=== PATIENT | female | born 1970 | race Caucasian/White ===

== ENCOUNTER 2020-12-13 14:32 | Emergency (ER) | payer OTHER, SELFPAY ==
[2020-12-13 14:32] VITALS: BP 117/85; PULSE 89; RESP 16; TEMP 36.4; O2SAT 95; BMI 25.0
--- NOTE | 2020-12-13 14:45 | CT_ITS ---
STUDY: CT BRAIN WITHOUT CONTRAST REASON FOR EXAM: Female, 50 years old. FALL HITTING BACK OF HEAD WITH POSITIVE LOC RADIATION DOSAGE (If Supplied By Facility): CTDIvol = ( 44.99 ) mGy, DLP = ( 779.24 ) mGycm TECHNIQUE: Transaxial CT imaging of the brain was performed without administration of intravenous contrast material. Individualized dose optimization techniques were used for this CT. COMPARISON: No relevant priors. FINDINGS: There is focal soft tissue swelling towards the vertex in the posterior parietal region measuring 6 x 6 x 1.5 cm. Normal calvarium. Normal size ventricles and extra-axial spaces for the patient''s age. Normal white matter tracts of the cerebral hemispheres. Normal basal ganglia and thalami. Normal brainstem. There is mild cerebellar atrophy. There is no intracranial hemorrhage. There are no findings of an acute ischemic infarction. Normal visualized paranasal sinuses. CT/Brain/Head without Contrast IMPRESSION: Posterior superficial soft tissue edema. No visualized acute fracture or intracranial hemorrhage. Electronically Signed: Noreen Hall MD at 15:14 EST Tel , Service support ,
--- NOTE | 2020-12-13 14:45 | ED.VIS.GEN ---
History of Present Illness Chief Complaint: Fall Informant: Patient Onset: Today Current Severity: Mild Maximum Severity: Mild Narrative: Patient presents after a fall. [place] she states she was suddenly falling backwards and hit her head on the concrete floor. She does not remember feeling lightheaded or dizzy prior to her fall. She denies having palpitations. She did not lose consciousness. She states she does have a goose egg on the back of her head and was told she should be checked out. She is not on anticoagulants. She denies vision changes or nausea. She denies neck pain. She does feel that her jaw is not sitting quite correctly, however is able to open and close her mouth without difficulty. Past Medical History - Allergies and Home Meds Allergies/Adverse Reactions: Allergies No Known Allergies Allergy (Verified 12/13/20 14:32) Primary Care Physician: Ariadna Horan,Out of [Primary Care Provider] - Past Medical History: None Lives: With Family Review of Systems General: Denies: Chills, Fever Eyes: Denies: Visual changes - bilaterally ENT: Reports: - - Jaw pain. Denies: Bilateral ear pain Cardiovascular: Denies: Chest pain Respiratory: Denies: Dyspnea Gastrointestinal: Denies: Abdominal pain, Nausea, Vomiting, Diarrhea Musculoskeletal: Denies: Swelling, Extremity Pain Skin: Reports: Wounds Neurological: Reports: Headache Hematologic: Denies: Easy bruising, Easy bleeding Allergy: Denies: Uticaria Physical Exam Vital Signs/Narrative: Vital Signs Temp Pulse Resp BP Pulse Ox 12/13/20 14:32 97.5 F L 89 16 117/85 H 95 Inital Vital Signs reviewed: Yes General: Well nourished, Well developed Head: Normocephalic, - - Small hematoma right occiput Eyes: Perrl, EOMI ENT: Moist mucous membranes, - - Able to open and close mandible without difficulty. No obvious malalignment. Neck: Supple, - - No C-spine tenderness. Cardiovascular: Regular rate, Regular rhythm Respiratory: No distress, CTA bilaterally Abdomen: Soft, Nontender Back: Nontender Extremities: Nontender Skin: Normal color Neurological: Alert, Oriented x3, Normal Strength, Normal Sensation Psychological: Normal affect Diagnostic/Tx/Re-eval Impressions Brain CT 12/13/20 14:45 IMPRESSION: Posterior superficial soft tissue edema. No visualized acute fracture or intracranial hemorrhage. Electronically Signed: Noreen Rafael, MD at 15:14 EST Tel , Service support , 12/13/20 14:45 CT Head [Brain/Head without Contrast] [CT] Stat - Medical Decision Making CT scan head is unremarkable. A repeat evaluation patient standing at the side of the bed, dressed, stating that she is ready go home. In light of the fact that she denied any prodromal symptoms or loss of consciousness I do not think other work-up is needed at this time. Patient will follow-up with her primary care physician. ED Disposition - Plan for ED Patient: Disposition: Home or Assisted Living Diagnosis: Closed head injury Instructions: ED Head Injury (Adult) Referrals: [facility] Doctor,Out of [Primary Care Provider] -
== END 2020-12-13 15:58 | disposition home or self-care (01) ==
LOC: ED 15:45
PROVIDERS: Emergency Provider Emergency Medicine
DX: S09.90XA Unspecified injury of head, initial encounter (principal); W22.09XA Striking against other stationary object, initial encounter
CPT/HCPCS: 70450; 99282